=== PATIENT | male | born 1955 | race Caucasian/White ===

== ENCOUNTER 2017-03-15 11:42 | Emergency (ER) | payer BC ==
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
--- NOTE | 2017-03-15 13:26 | CR ---
Chest 2V INDICATION: Short of breath, [place] exposure COMPARISON: 11/08/2008 FINDINGS: Two views. Heart size is increased slightly in the interim. Prominent lung markings or v ascularity, stable. No new infiltrates. No obvious adenopathy. No pleural effusions. Multilevel mild compression deformities mid to lower thoracic spine unchanged. IMPRESSION: 1. Nothing acute. 2. Slight increase in heart size 3. No change in prominent lung markings or vascularity since the prior study.
== END 2017-03-15 14:50 | disposition home or self-care (01) ==
LOC: JP.ED 11:42
DX: I50.9 Heart failure, unspecified (principal); E11.9 Type 2 diabetes mellitus without complications; Z77.22 Contact with and (suspected) exposure to environmental tobacco smoke (acute) (chronic); Z79.82 Long term (current) use of aspirin; Z79.899 Other long term (current) drug therapy; Z88.0 Allergy status to penicillin
CPT/HCPCS: 36415; 71020; 71020-26; 80053; 83880; 84484; 85025; 85651; 93005; 99284-25

== ENCOUNTER → 2024-11-07 | Day surgery (SDC) | payer MEDICARE ==
[~2024-11-07] MED LIST: Propofol 200 MG/20 ML SDV ONE; fentaNYL 50 MCG/ML SDV ONE
[2024-11-07] MEDS: Lactated Ringers 1,000 ML IV SCH (06:51)
== END ==
LOC: JP.SDS 06:20
PROVIDERS: ATTEND Surgery
DX: K29.50 Unspecified chronic gastritis without bleeding (principal); K31.89 Other diseases of stomach and duodenum; R13.10 Dysphagia, unspecified; I25.10 Atherosclerotic heart disease of native coronary artery without angina pectoris; I50.9 Heart failure, unspecified; Z98.0 Intestinal bypass and anastomosis status
CPT/HCPCS: 00731; 43239; 43245; 88305; 88313; C1726; J2704; J3010; J7120

== ENCOUNTER 2025-01-08 06:20 | Day surgery (SDC) | payer MEDICARE ==
[2025-01-08] MEDS: Lactated Ringers 1,000 ML IV SCH (07:02)
[2025-01-08] MEDS ORDERED: Propofol 200 MG/20 ML SDV ONE (07:25)
[2025-01-08] MEDS ORDERED: fentaNYL 50 MCG/ML SDV ONE (07:25)
== END 2025-01-08 09:00 | disposition home or self-care (01) ==
LOC: JP.SDS 06:20
PROVIDERS: ATTEND Surgery
DX: K91.89 Other postprocedural complications and disorders of digestive system (principal); R13.10 Dysphagia, unspecified
CPT/HCPCS: 00731; 43245; C1726; J2704; J3010; J7120

== ENCOUNTER 2025-01-22 10:26 | Emergency (ER) | payer MEDICARE ==
[2025-01-22 11:03] LABS: BASOPHILS PERCENT AUTO 0.2 % (0.1-1.3); EOSINOPHILS ABSOLUTE AUTO 0.09 K/uL (0.00-0.40); EOSINOPHILS PERCENT AUTO 0.7 % (0.0-5.4); IMMATURE GRAN ABSOLUTE AUTO 0.13 K/uL (0.00-0.23); IMMATURE GRAN PERCENT AUTO 1.0 % (0.0-0.7); LYMPHOCYTES ABSOLUTE AUTO 0.56 K/uL (0.8-3.3); LYMPHOCYTES PERCENT AUTO 4.5 % (11.4-47.7); MONOCYTES ABSOLUTE AUTO 0.92 K/uL (0.20-0.90); MONOCYTES PERCENT AUTO 7.3 % (3.3-12.6); NEUTROPHILS ABSOLUTE AUTO 10.83 K/uL (1.0-7.6); NEUTROPHILS PERCENT AUTO 86.3 % (40.0-78.1); PLATELET COUNT,PLT 257 K/uL (130-375); RED BLOOD CELL COUNT 4.05 M/uL (4.14-5.76); WHITE BLOOD CELL COUNT,WBC 12.6 K/uL (3.2-11.0)
[2025-01-22 11:04] LABS: BASOPHILS ABSOLUTE AUTO 0.02 K/uL (0.00-0.10)
[2025-01-22 11:23] LABS: A/G RATIO 0.7 (1.2-2.2); ALANINE AMINOTRANSFERASE,ALT 44 U/L (12-78); ASPARTATE AMNIOTRANSFERASE,AST 51 U/L (15-37); BILIRUBIN TOTAL 0.7 mg/dL (0.2-1.0); BLOOD UREA NITROGEN,BUN 42 mg/dL (7-18); CARBON DIOXIDE,CO2 27 mmol/L (21-32); CHLORIDE,CL 94 mmol/L (100-108); CREATININE 1.0 mg/dL (0.8-1.3); EST CRCL DRUG DOSING (CG) 60.73 mL/min; ESTIMATED GFR 82 mL/min (>60); GLUCOSE RANDOM 302 mg/dL (74-106); POTASSIUM,K 5.3 mmol/L (3.6-5.2); PROTEIN TOTAL,TP 6.2 g/dL (6.4-8.2); SODIUM,NA 130 mmol/L (140-148)
[2025-01-22] MEDS: guaiFENesin 100 MG/5 ML Soln 10 ML UD Cup PO ONE (11:55)
[2025-01-22] MEDS: Sodium Chloride 0.9% 10 ML Syringe FLUSH PRN (12:55)
[2025-01-22] MEDS: Iopamidol 612 MG/ML 100 ML Bottle IV PRN (12:55)
== END 2025-01-22 14:26 ==
LOC: JP.ED 10:26
DX: R13.0 Aphagia (principal); E86.0 Dehydration; C25.9 Malignant neoplasm of pancreas, unspecified; C79.9 Secondary malignant neoplasm of unspecified site; E11.9 Type 2 diabetes mellitus without complications; Z98.84 Bariatric surgery status; Z88.0 Allergy status to penicillin; Z79.01 Long term (current) use of anticoagulants; Z79.899 Other long term (current) drug therapy
CPT/HCPCS: 36415; 74177; 80053; 85025; 86140; 93005; 93010; 96361; 96374; 96376; 99285; J1171; J7030; Q9967